=== PATIENT | female | born 1975 | race Caucasian/White ===

== ENCOUNTER 2017-10-04 12:15 | Inpatient (IN) | payer OTHER ==
[~2017-10-04] VITALS: Ht 160 cm; Wt 42.6 kg
--- NOTE | ~2017-10-04 | EKG ---
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1975 Requested By: Rudolph Andrade Order Number: [id number] MD: Fransisco Tejeda Measurements Intervals [place] Rate: 72 P: 85 TX: 162 QRS: 84 QRSD: 101 T: 57 QT: 471 QTc: 516 Interpretive Statements Sinus rhythm Probable left atrial enlargement Minimal ST depression, inferior leads Prolonged QT interval Compared to ECG 10/27/2014 14:29:50 ST (T wave) deviation now present Prolonged QT interval now present Electronically Signed On 10-06-2017 8:31:20 CDT by Fransisco Tejeda [email or web address] <ELECTRONICALLY SIGNED> By: Fransisco Tejeda MD, [facility] 10/06/17 0831 1245 1245 Fransisco Tejeda MD, [facility] /EPI
--- NOTE | ~2017-10-04 | 2DMMODE ---
[facility] [address] [email or web address] [address] 2 D/M-MODE ECHOCARDIOGRAM Name: PERIBEATRIZRYAN BETH Room #: 426-P ADM IN M.R.#: [id number] Admission: 10/04/17 Attend Phys: Maycol Darling, Discharge: Date of : 73 Date of Service: 10/04/17 1606 Report #: [id number] THIS REPORT FOR: //name// APPROVED REPORT Study performed: 10/04/2017 14:49:30 EXAM: Comprehensive 2D, Doppler, and color-flow Echocardiogram Patient Location: ER Room #: 7 Status: routine BSA: 1.37 HR: 48 bpm BP: 134/77 mmHg Other Information Study Quality: Technically Difficult Technically limited study due to uncooperative patient. Indications near syncope 2D Dimensions RVDd: 28.89 mm LVEF(%): 51.94 (>50%) IVSd: 8.21 (7-11mm) LVOT Diam: 19.28 (18-24mm) LVDd: 36.64 mm PWd: 8.99 (7-11mm) Ascending Ao: 27.91 (22-36mm) LVDs: 27.11 (25-40mm) Aortic Root: 28.81 mm IVC: 25.00 mm Castro's LVEF: 51.94 % Volumes Left Atrial Volume (Systole) Single Plane 4CH: 25.73 mL Single Plane 2CH: 30.88 mL LA ESV Index: 26.00 mL/m2 Aortic Valve AoV Peak Butch.: 1.17 m/s AO Peak Gr.: 5.50 mmHg LVOT Max P.18 mmHg LVOT Max V: 1.02 m/s SHONNA Vmax: 2.54 cm2 Mitral Valve E/A Ratio: 1.7 [facility] [place] [address] 2 D/M-MODE ECHOCARDIOGRAM Name: RYAN SPRINGER Room #: 426-P [facility] IN M.R.#: [id number] Admission: 10/04/17 Attend Phys: Maycol Darling, Discharge: Date of : 73 Date of Service: 10/04/17 1606 Report #: [id number] MV Decel. Time: 237.29 ms MV E Max Butch.: 0.76 m/s MV A Butch.: 0.46 m/s MV PHT: 68.81 ms IVRT: 128.03 ms Pulmonary Valve PV Peak Butch.: 0.75 m/s PV Peak Gr.: 2.25 mmHg Pulmonary Vein P Vein S: 0.47 m/s P Vein A: 0.16 m/s P Vein D: 0.42 m/s P Vein A Dur.: 101.5 msec P Vein S/D Ratio: 1.12 Tricuspid Valve TR Peak Butch.: 2.15 m/s RAP Estimate: 15.00 mmHg TR Peak Gr.: 18.52 mmHg PA Pressure: 34.00 mmHg Left Ventricle The left ventricle is normal size. There is normal left ventricular wall thickness. The left ventricular systolic function is normal. The left ventricular ejection fraction is within the normal range. LVEF is 60-65%. The left ventricular diastolic function is normal. Right Ventricle The right ventricle is normal size. The right ventricular systolic function is normal. Atria The left atrium size is normal. The right atrium size is normal. Aortic Valve The aortic valve is normal in structure. No aortic regurgitation is present. There is no aortic valvular stenosis. Mitral Valve The mitral valve is normal in structure. Mild mitral regurgitation. No evidence of mitral valve stenosis. Tricuspid Valve The tricuspid valve is normal in structure. Trace tricuspid regurgitation. PAP is estimated at 34 [place] [address] 2 D/M-MODE ECHOCARDIOGRAM Name: RYAN SPRINGER Room #: 426-[facility] IN ..#: [id number] Admission: 10/04/17 Attend Phys: Maycol Darling, Discharge: Date of : 73 Date of Service: 10/04/17 1606 Report #: [id number] The pulmonary valve is normal in structure. There is no pulmonic valvular regurgitation. Great Vessels The aortic root is normal in size. IVC is dilated and collapses <50% with inspiration. Pericardium There is no pericardial effusion. <Conclusion> The left ventricle is normal size. LVEF is 60-65%. The aortic valve is normal in structure. The mitral valve is normal in structure. Mild mitral regurgitation. The tricuspid valve is normal in structure. Trace tricuspid regurgitation. PAP is estimated at 34 mmHg. The pulmonary valve is normal in structure. There is no pericardial effusion. <ELECTRONICALLY SIGNED> By: Junior Amaya MD 10/04/17 1606 1606 1606 Junior Amaya MD /INF
[2017-10-04 12:15] VITALS: BP 132/78
[~2017-10-04 12:15] MED LIST: AUGMENTIN 875875 MG PO; ENDOCET 10-3251 EACH PO; FLEXERIL PO; IBUPROFEN 800800 M1 PO; PERCOCET 5-3251 EACH PO; PHENERGAN 25 MG25 M1 PO; VIVANCE
[2017-10-04 12:40] LABS: ABSOLUTE NEUTROPHILS 3.1 thou/uL (1.4-8.2); BASOPHILS 0.6 % (0.0-2.0); EOSINOPHILS 1.5 % (0.0-3.0); HEMATOCRIT 41.3 % (37.0-47.0); HEMOGLOBIN 13.8 gm/dL (12.0-15.0); LYMPHOCYTES 19.2 % (24.0-44.0); MCH 28.5 pg (26.0-34.0); MCHC 33.5 g/dL (28.0-37.0); MCV 85.1 fL (80.0-100.0); MONOCYTES 9.5 % (1.0-8.0); PLATELET COUNT 182 thou/uL (150-400); POLYS 69.2 % (36.0-66.0); RBC 4.85 mil/uL (4.20-5.00); WBC 4.5 thou/uL (4.0-11.0)
[2017-10-04] MEDS ORDERED: MS CONTIN15 MG PO (12:46)
[2017-10-04 12:51] LABS: ANION GAP 15 mmol/L (7-16); BUN 14 mg/dL (7-18); CALCIUM 9.4 mg/dL (8.5-10.1); CHLORIDE 104 mmol/L (98-107); CO2 20 mmol/L (21-32); GLUCOSE 111 mg/dL (74-106); SODIUM 139 mmol/L (136-145)
[2017-10-04 13:00] LABS: ALBUMIN 4.3 g/dL (3.4-5.0); LIPASE 215 U/L (73-393); SGOT 13 U/L (15-37); SGPT 18 U/L (30-65); TOTAL BILIRUBIN 0.8 mg/dL (<0.1-1.0); TOTAL PROTEIN 7.8 g/dL (6.4-8.2); TROPONIN-I <0.06 ng/mL (<0.06)
[2017-10-04 13:03] LABS: POTASSIUM 2.8 mmol/L (3.5-5.1)
[2017-10-04 13:59] LABS: AMP/METHAMP Negative (Negative); BARBITURATES Negative (Negative); BENZODIAZEPINES POSITIVE (Negative); COCAINE Negative (Negative); METHADONE Negative (Negative); OPIATES POSITIVE (Negative); PCP Negative (Negative)
[2017-10-04 14:07] LABS: URINE BILIRUBIN NEGATIVE (Negative); URINE BLOOD NEGATIVE (Negative); URINE CLARITY CLOUDY; URINE COLOR YELLOW; URINE GLUCOSE-RANDOM* NEGATIVE (Negative); URINE KETONES NEGATIVE (Negative); URINE LEUKOCYTES-REFLEX NEGATIVE (Negative); URINE NITRITE-REFLEX NEGATIVE (Negative); URINE PROTEIN (DIPSTICK) TRACE (Negative); URINE SPECIFIC GRAVITY 1.015 (1.005-1.035); URINE UROBILINOGEN 0.2 E.U./dl (0.2-1.0)
[2017-10-04 14:58] VITALS: BP 125/81
[2017-10-04 15:45] VITALS: BP 122/72
[2017-10-04 16:20] VITALS: BP 84/50
[2017-10-04 20:00] VITALS: BP 119/63
[2017-10-05 04:46] VITALS: BP 111/65
[2017-10-05 07:53] VITALS: BP 112/63
[2017-10-05 07:57] VITALS: BP 105/66; BP 108/71
[2017-10-05 08:13] LABS: CALCIUM 8.7 mg/dL (8.5-10.1); CREATININE 0.7 mg/dL (0.6-1.0); POTASSIUM 3.3 mmol/L (3.5-5.1)
[2017-10-05 09:45] VITALS: BP 108/71
== END 2017-10-05 12:11 | disposition home or self-care (01) | DRG 683 ==
LOC: ER 12:15 → EROBS 14:18 → 4E 14:18
PROVIDERS: Family Medicine; Physician Assistant
DX: N17.9 Acute kidney failure, unspecified (principal); G90.50 Complex regional pain syndrome I, unspecified; E87.6 Hypokalemia; I95.1 Orthostatic hypotension; Z86.73 Personal history of transient ischemic attack (TIA), and cerebral infarction without residual deficits; Z88.6 Allergy status to analgesic agent; Z79.899 Other long term (current) drug therapy
CPT/HCPCS: 10183